=== PATIENT | female | born 1940 | race Two or more races ===

== ENCOUNTER 2025-06-30 14:09 | Inpatient (IN) | payer OTHER ==
[~2025-06-30] VITALS: Ht 165.1 cm; Wt 55.8 kg
[2025-06-30] MEDS ORDERED: METFORMIN HCL500 MG (14:39)
[2025-06-30] MEDS ORDERED: PROTONIX20 MG PO (14:39)
[2025-06-30] MEDS ORDERED: LEVOTHYROXINE25 MCG PO (14:39)
[2025-06-30] MEDS ORDERED: KETOROLAC TROMETHAMINE 30 MG VIAL IU ONE (17:45)
[2025-06-30] MEDS ORDERED: ONDANSETRON HCL 4 MG in 0.9 % SODIUM CHLORIDE 50 ML IV ONE (17:45)
[2025-06-30] MEDS ORDERED: 0.9 % SODIUM CHLORIDE 1,000 ML IV SCH ×2 (17:45→23:15)
[2025-06-30] MEDS ORDERED: FAMOtidine 10 MG/ML (4ML VIAL) IV PUSH ONE (17:45)
[2025-06-30] MEDS ORDERED: FAMOTIDINE/PF 20 MG/2 ML VIAL ONE (17:57)
[2025-06-30] MEDS ORDERED: ONDANSETRON HCL 2 MG/ML VIAL ONE (17:57)
[2025-06-30] MEDS ORDERED: KETOROLAC TROMETHAMINE 30 MG VIAL ONE (17:57)
[2025-06-30 18:33] LABS: BASO % 0.4 % (0.1-1.2); EOS # 0.05 (0.04-0.54); EOS % 0.5 % (0.7-7.0); LYMPH # 1.27 (1.18-3.74); LYMPH % 12.4 % (19.3-53.1); MEAN PLATELET VOLUME 10.40 fl (9.4-12.4); MONO # 1.01 (0.24-0.82); MONO % 9.9 % (4.7-12.5); NEUT # 7.83 (1.56-6.13); NEUT % 76.5 % (34.0-71.1); RED CELL DISTRIBUTION WIDTH 13.5 % (11.6-14.4)
[2025-06-30 19:01] LABS: INR 0.98
[2025-06-30 19:07] LABS: ALT/SGPT 293.0 U/L (12-78); AST/SGOT 400.0 U/L (15-37); BILIRUBIN TOTAL 0.46 mg/dL (0.3-1.2); BUN CREA RATIO 20.0 (7.0-25.0); CREATININE SERUM 0.8 mg/dL (0.55-1.02); GFR 67.85; GLOBULINA 4.2 G/DL (2.4-3.5); GLUCOSE FASTING 143.0 mg/dL (65-100); OSMOLALITY SERUM 289.0 MOSM/KG (275-295)
[2025-06-30] MEDS ORDERED: INSULIN LISPRO 1,000 UNIT/10 ML UNITS SUBCUTANEO PRN (23:15)
[2025-06-30] MEDS ORDERED: ENOXAPARIN SODIUM 40 MG/0.4 ML SYRINGE SUBCUTANEO ONE (23:15)
[2025-06-30] MEDS ORDERED: MORPHINE SULFATE 2 MG/ML SYRINGE IV PRN (23:15)
[2025-06-30] MEDS ORDERED: ONDANSETRON HCL 4 MG in 0.9 % SODIUM CHLORIDE 50 ML IV PRN (23:15)
[2025-06-30] MEDS ORDERED: DEXTROSE 50 % IN WATER 0.5 G/ML DISP.SYRIN IV PRN (23:15)
[2025-07-01] MEDS ORDERED: PIPERACILLIN/TAZOBACTAM SODIUM 3.375 GM in DEXTROSE 5 % IN WATER 100 ML IV SCH
[2025-07-01] MEDS ORDERED: ENOXAPARIN SODIUM 40 MG/0.4 ML SYRINGE SUBCUTANEO ONE (00:15)
[2025-07-01] MEDS ORDERED: PIPERACILLIN/TAZOBACTAM SODIUM 3.375 GM VIAL IV ONE (00:15)
[2025-07-01 00:16] LABS: URINE APPEARANCE Clear; URINE BILIRRUBIN Negative (NEGATIVE); URINE BLOOD Trace; URINE COLOR Yellow; URINE GLUCOSE Negative (NEGATIVE); URINE KETONE Negative (NEGATIVE); URINE LEUKOCYTE Trace; URINE NITRATE Negative; URINE PROTEIN Negative (NEGATIVE); URINE UROBILINOGEN 1.0 E.U./dl
[2025-07-01 00:20] LABS: URINE BACTERIA 77.9 uL (0.0-1933); URINE EPITHELIAL CELLS 18.4 uL (0.0-38.8); URINE RBC 68.9 uL (0.0-20.8); URINE WBC 28.4 uL (0.0-23.2)
[2025-07-01 00:40] LABS: URINE CAST 0.00 uL (0.0-1.40)
[2025-07-01 03:00] LABS: BILIRUBIN TOTAL 0.67 mg/dL (0.3-1.2)
[2025-07-01 03:08] LABS: BILIRUBIN,CONJUGATED 0.18 mg/dL (0.0-0.2)
[2025-07-01 03:40] VITALS: BP 109/62; O2SAT 95
[2025-07-01] MEDS ORDERED: LEVOTHYROXINE SODIUM 25 MCG TABLET PO SCH (06:00)
[2025-07-01 07:15] VITALS: BP 105/69
[2025-07-01 16:00] VITALS: BP 119/77; O2SAT 95
[2025-07-01] MEDS ORDERED: DEXTROSE 5 % AND 0.9 % NACL 1,000 ML IV SCH (17:45)
[2025-07-01 23:26] VITALS: BP 98/65; O2SAT 95
[2025-07-02 07:28] LABS: BASO % 1.0 % (0.1-1.2); EOS # 0.20 (0.04-0.54); EOS % 3.3 % (0.7-7.0); LYMPH # 1.44 (1.18-3.74); LYMPH % 23.8 % (19.3-53.1); MEAN PLATELET VOLUME 11.60 fl (9.4-12.4); MONO # 0.98 (0.24-0.82); NEUT # 3.35 (1.56-6.13); NEUT % 55.4 % (34.0-71.1); RED CELL DISTRIBUTION WIDTH 13.7 % (11.6-14.4)
[2025-07-02 07:36] LABS: MONO % 16.2 % (4.7-12.5)
[2025-07-02 08:00] VITALS: BP 144/76; O2SAT 97
[2025-07-02 08:14] LABS: ALT/SGPT 253.0 U/L (12-78); AST/SGOT 151.0 U/L (15-37); BILIRUBIN TOTAL 0.63 mg/dL (0.3-1.2); BUN CREA RATIO 11.0 (7.0-25.0); CREATININE SERUM 0.7 mg/dL (0.55-1.02); GFR 79.15; GLOBULINA 3.0 G/DL (2.4-3.5); GLUCOSE FASTING 114.0 mg/dL (65-100); OSMOLALITY SERUM 288.0 MOSM/KG (275-295)
[2025-07-02 18:11] VITALS: BP 142/79; O2SAT 96
[2025-07-02] MEDS ORDERED: ENALAPRILAT DIHYDRATE 1.25 MG/ML VIAL IV PRN (19:45)
[2025-07-03 02:45] VITALS: BP 126/77; O2SAT 95
[2025-07-03] MEDS ORDERED: LEVOTHYROXINE SODIUM 75 MCG TABLET PO SCH (06:00)
[2025-07-03 08:15] VITALS: BP 133/74; O2SAT 100
[2025-07-03 15:46] VITALS: BP 138/79; O2SAT 96
[2025-07-03] MEDS ORDERED: SUGAMMADEX SODIUM 200 MG/2 ML VIAL IV ONE (19:33)
[2025-07-03] MEDS ORDERED: ONDANSETRON HCL 2 MG/ML VIAL ONE (20:31)
[2025-07-03] MEDS ORDERED: KETOROLAC TROMETHAMINE 30 MG VIAL IV PRN (21:45)
[2025-07-03 22:29] VITALS: BP 124/71; O2SAT 96
[2025-07-04 01:01] VITALS: BP 112/70; O2SAT 98
[2025-07-04 08:00] VITALS: BP 127/54; O2SAT 95
[2025-07-04] MEDS ORDERED: SUCRALFATE 1 G TABLET PO SCH (09:00)
[2025-07-04] MEDS ORDERED: LACTOBACILLUS ACIDOPHILUS 1 CAP CAP PO SCH (09:00)
[2025-07-04 16:00] VITALS: BP 109/75; O2SAT 96
[2025-07-05 00:22] VITALS: BP 100/68; O2SAT 97
[2025-07-05 08:27] LABS: ALT/SGPT 99.0 U/L (12-78); AST/SGOT 32.0 U/L (15-37); BILIRUBIN TOTAL 0.59 mg/dL (0.3-1.2); BUN CREA RATIO 9.0 (7.0-25.0); CREATININE SERUM 0.64 mg/dL (0.55-1.02); GFR 87.78; GLOBULINA 3.4 G/DL (2.4-3.5); GLUCOSE FASTING 124.0 mg/dL (65-100); OSMOLALITY SERUM 286.0 MOSM/KG (275-295)
[2025-07-05 08:30] VITALS: BP 134/84; O2SAT 97
[2025-07-05 08:49] LABS: BASO % 0.5 % (0.1-1.2); EOS # 0.12 (0.04-0.54); EOS % 1.2 % (0.7-7.0); LYMPH # 1.56 (1.18-3.74); LYMPH % 15.7 % (19.3-53.1); MEAN PLATELET VOLUME 11.80 fl (9.4-12.4); MONO # 1.21 (0.24-0.82); NEUT # 6.98 (1.56-6.13); NEUT % 70.1 % (34.0-71.1); RED CELL DISTRIBUTION WIDTH 13.4 % (11.6-14.4)
[2025-07-05 09:12] LABS: MONO % 12.2 % (4.7-12.5)
[2025-07-05 16:36] VITALS: BP 139/88; O2SAT 95
[2025-07-06 01:12] VITALS: BP 127/79; O2SAT 98
[2025-07-06 08:00] VITALS: BP 142/82; O2SAT 96
[2025-07-06 16:32] VITALS: BP 133/80; O2SAT 96
[2025-07-07 00:18] VITALS: BP 144/84; O2SAT 96
[2025-07-07 08:00] VITALS: BP 147/87; O2SAT 98
[2025-07-07] MEDS ORDERED: DEXTROSE 5%-WATER 100ML IV.SOLN ONE (08:14)
[2025-07-07] MEDS ORDERED: PIPERACILLIN/TAZOBACTAM SODIUM 3.375 GM VIAL IV ONE (08:16)
[2025-07-07 16:11] VITALS: BP 139/82; O2SAT 95
[2025-07-08 00:32] VITALS: BP 134/83; O2SAT 97
[2025-07-08 07:43] LABS: BASO % 0.6 % (0.1-1.2); EOS # 0.22 (0.04-0.54); EOS % 2.6 % (0.7-7.0); LYMPH # 1.73 (1.18-3.74); LYMPH % 20.5 % (19.3-53.1); MEAN PLATELET VOLUME 11.20 fl (9.4-12.4); MONO # 0.93 (0.24-0.82); MONO % 11.0 % (4.7-12.5); NEUT # 5.48 (1.56-6.13); NEUT % 65.1 % (34.0-71.1); RED CELL DISTRIBUTION WIDTH 13.3 % (11.6-14.4)
[2025-07-08 08:54] LABS: ALT/SGPT 64.0 U/L (12-78); AST/SGOT 14.0 U/L (15-37); BILIRUBIN TOTAL 0.43 mg/dL (0.3-1.2); BUN CREA RATIO 13.0 (7.0-25.0); CREATININE SERUM 0.78 mg/dL (0.55-1.02); GFR 69.86; GLOBULINA 3.8 G/DL (2.4-3.5); GLUCOSE FASTING 105.0 mg/dL (65-100); OSMOLALITY SERUM 286.0 MOSM/KG (275-295)
[2025-07-08 16:14] VITALS: BP 127/75; O2SAT 96
== END 2025-07-09 06:16 | disposition home or self-care (01) | DRG 419 ==
LOC: ER 14:09 → SURG 23:06 → SURH 07-03 19:05
PROVIDERS: General Practice; Internal Medicine Infectious Disease; Surgery; ADMIT Internal Medicine; ATTEND Internal Medicine
PROC: BW21ZZZ Computerized Tomography (CT Scan) of Abdomen and Pelvis (ICD-10-PCS; 2025-06-30)
PROC: BW40ZZZ Ultrasonography of Abdomen (ICD-10-PCS; 2025-06-30)
PROC: B246ZZZ Ultrasonography of Right and Left Heart (ICD-10-PCS; 2025-07-02)
PROC: 0FT44ZZ Resection of Gallbladder, Percutaneous Endoscopic Approach (ICD-10-PCS; principal; 2025-07-03 16:00)
DX: K80.10 Calculus of gallbladder with chronic cholecystitis without obstruction (principal); R11.2 Nausea with vomiting, unspecified; R10.32 Left lower quadrant pain; E03.9 Hypothyroidism, unspecified; E78.5 Hyperlipidemia, unspecified; E11.9 Type 2 diabetes mellitus without complications; Z90.49 Acquired absence of other specified parts of digestive tract; K80.00 Calculus of gallbladder with acute cholecystitis without obstruction